=== PATIENT | female | born 1975 | race Caucasian/White ===

== ENCOUNTER 2019-03-25 20:20 | Emergency (ER) | payer MEDICAID, SELFPAY ==
--- NOTE | 2019-03-25 20:25 | NUR.NOTE ---
Nursing Note: pt states that she developed 10/10 pain at 1200 today left upper third molar
--- NOTE | 2019-03-25 20:27 | NUR.NOTE ---
Nursing Note: pt states that she developed 10/10 pain at 1200 today left upper third molar. pt has history of tooth infection in the same tooth was prescribed penicillin from our ER and told to follow up with dentist PT never followed up 3-4 months ago
[2019-03-25 20:28] VITALS: BP 115/65; PULSE 89; RESP 15; TEMP 36.8; O2SAT 96
[2019-03-25] MEDS: Penicillin V POTASSIUM 500 MG TAB PO (22:00)
--- NOTE | 2019-03-25 22:00 | ED.GENADUL_ITS ---
Discharge Plan Disposition Patient Disposition: HOME Condition: Improving Discharge Details Chief Complaint: DentalOral Clinical Impression: Infected dental caries Primary Care Provider: Kishore Montelongo ED Provider: Kade Chopra Home Meds and New Rx's Prescriptions: New penicillin V potassium 500 mg tablet 500 mg PO QID 7 Days Qty: 28 RF: 0 Continued sertraline 100 MG tablet 100 mg PO BID RF: 0 risperidone [Risperdal] 1 MG tablet 1 mg PO HS RF: 0 clonazepam 1 MG tablet 1 mg PO QID RF: 0 methylphenidate HCl [Ritalin] 20 MG tablet 20 mg PO TID RF: 0 peg 3350-electrolytes [Golytely] 4,000 ML recon soln 4,000 ml PO ONCE Qty: 4000 RF: 0 Discharge Instructions Instructions: Dental Abscess (ED) Additional Instructions: For pain control you may take 600 mg of ibuprofen along with 1000 mg of Tylenol every 6 hours as needed. Please take anabolic as prescribed and for the full course of medication. Return to the emergency department as needed for any new or significant worsening of symptoms otherwise follow-up with a dental provider. Referrals: Kishore Montelongo [Primary Care Provider] - (As needed for referral or reassessment) Discharge Data Discharge Date/Time-TO BE ENTERED AT DEPARTURE: 03/25/19 22:14 Medical Decision Making Left upper dental pain, since noon, severe. History of dental infection. Physical exam shows poor dentition. There is tenderness to tooth #16. Dental block performed with 1.5 mL's of 0.5%. Marcaine. Patient tolerated procedure w ell and had full resolution of pain. Patient placed on penicillin for concern of dental infection but no abscess is seen, no Craig's angina, no peritonsillar retropharyngeal abscess, patient is stable and afebrile. Return precautions discussed. Patient informed to follow-up with dental provider for definitive care of dental issue. After discussion of diagnosis and plan of care patient has no further needs, questions, or concerns and states clear understanding to return to the emergency department for any worsening symptoms. HPI General Mode of arrival: ambulatory . Date/Time Provider Initiated Documentation: 03/25/19 20:47 . Limitations to Documentation: no limitations . Information obtained by: patient . History of Present Illness 43 year old F presents to the emergency department with the chief complaint of Dental pain, described as severe, with intensity rated at 8. Quality is described as sharp, and is localized to the mouth. Patient started experiencing this hour(s) (8) and it has been constant. No relieving factors improve symptom(s), Patient notes no other symptoms.. Patient did receive the following treatments prior to arrival, other (Acetaminophen) Related Data Home Medications Medication Instructions Recorded Confirmed clonazepam 1 mg PO QID 06/04/15 03/25/19 risperidone [Risperdal] 1 mg PO HS 06/04/15 03/25/19 sertraline 100 mg PO BID 06/04/15 03/25/19 methylphenidate HCl [Ritalin] 20 mg PO TID 01/16/16 03/25/19 peg 3350-electrolytes [Golytely] 4,000 ml PO ONCE #4000 soln.recon 01/16/16 03/25/19 penicillin V potassium 500 mg PO QID 7 Days #28 tab 03/25/19 Previous Rx's Medication Instructions Recorded peg 3350-electrolytes [Golytely] 4,000 ml PO ONCE #4000 soln.recon 01/16/16 penicillin V potassium 500 mg PO QID 7 Days #28 tab 03/25/19 Allergies Allergy/AdvReac Type Severity Reaction Status Date / Time No Known Allergies Allergy Unverified 03/25/19 20:29 General Stated Complaint: DentalOral ROBLES: 4 Review of Systems Constitutional Denies chills and Denies fever(s) ENT Reports as per HPI, Denies change in voice, Reports dental pain, Denies dysphagia, Denies throat swelling and Denies tongue swelling Cardiovascular Denies chest pain and Denies dyspnea Respiratory Denies dyspnea, Denies stridor and Denies wheezing Gastrointestinal Denies abdominal pain, Denies dysphagia, Denies nausea and Denies vomiting Integumentary/Breasts Denies rash Allergic/Immunologic Denies throat swelling, Denies tongue swelling and Denies wheezing [facility] Medical History Anxiety Depression Family History Other Heart disease Social History Smoking/Tobacco Use Status: Current every day Alcohol Intake: never Drug use: Daily Substance use type: marijuana Do you feel safe at home: Yes Do you feel safe in your relationship?: Yes Exam Const General: cooperative Orientation: alert, awake and oriented x3 Limitations: mental status not altered [facility] Head: normal to inspection, normocephalic and atraumatic Ears: hearing grossly normal bilaterally, normal mastoids bilaterally and no periauricular adenopathy General nose exam: external nose normal Mouth: oropharynx normal, no drooling, no muffled voice, normal tongue and no trismus Teeth and gingiva: caries, gingiva abnormal diffusely erythematous (Surrounding tooth 16) and tender (Surrounding tooth 16), poor dentition and other (Tenderness to tooth 16) Throat: posterior oropharynx normal, tonsils normal and uvula midline Eyes General: appearance normal, both eyes and all related structures Pupils: PERRL Neck Neck: normal visual inspection, full ROM, no lymphadenopathy, no meningeal signs, trachea midline, supple, no anterior neck swelling and no midline deformity Resp Effort & Inspection: normal respiratory effort and able to speak in complete sentences Course Vital Signs Temperature 36.8 C 03/25/19 20:28 Pulse 89 03/25/19 20:28 Respiratory Rate 15 03/25/19 20:28 Blood Pressure 115/65 03/25/19 20:28 Pulse Oximetry 96 03/25/19 20:28 Temperature 36.8 C 03/25/19 20:28 Temperature Source Skin 03/25/19 20:28 Pulse 89 03/25/19 20:28 Respiratory Rate 15 03/25/19 20:28 Respiratory Effort 03/25/19 20:30 Blood Pressure 115/65 03/25/19 20:28 Blood Pressure Position Sitting 03/25/19 20:28 Pulse Oximetry 96 03/25/19 20:28 Oxygen Delivery Method Room Air 03/25/19 20:28 Oxygen Flow Rate 0 03/25/19 20:28 Pain Level 10 03/25/19 20:28
[2019-03-25] MEDS: Bupivacaine 0.5% Pres-Free 30 ML VIAL IJ (22:14)
[2019-03-25] MEDS: Penicillin V POTASSIUM 500 MG TAB 1500 MG PO (22:19)
[2019-03-25] MEDS: Ibuprofen 600 MG TAB PO (22:20)
[2019-03-25 22:22] VITALS: BP 115/65; PULSE 89; RESP 15; TEMP 36.8; O2SAT 96
== END 2019-03-25 22:14 | disposition home or self-care (01) ==
PROVIDERS: Emergency Provider Nurse Practitioner Family; PCP Family Medicine
DX: K04.7 Periapical abscess without sinus (principal); K02.9 Dental caries, unspecified
CPT/HCPCS: 64400; 99283

== ENCOUNTER 2021-04-01 17:16 | Outpatient (REF) | payer MEDICAID, SELFPAY ==
[2021-04-01 19:02] LABS: Bilirubin Small (Negative); Blood Moderate (Negative); Clarity Sl Cloudy (Clear); Glucose Negative (Negative); Ketones Trace mg/dL (Negative); Leukocyte Esterase Small (Negative); Nitrite Positive (Negative); Specific Gravity 1.025 (1.005-1.025)
[2021-04-01 19:10] LABS: Bacteria Many HPF (Negative); C & S Indicated? C&S Done As Ordered; Casts Negative LPF (Negative); Crystals Negative HPF (Negative); Epithelial Cells Few HPF (Negative); Mucus Trace (Negative)
== END 2021-04-01 17:17 | disposition home or self-care (01) ==
LOC: LBN 17:16
PROVIDERS: PCP Family Medicine; Visit Provider Family Medicine
DX: R33.9 Retention of urine, unspecified (principal); G60.0 Hereditary motor and sensory neuropathy
CPT/HCPCS: 87077; 81003; 81015; 87086; 87186

== ENCOUNTER 2021-10-30 18:49 | Outpatient (REF) | payer MEDICAID, SELFPAY ==
[2021-10-30 17:54] LABS: HCT 39.6 % (36.0-46.0); MCH 31.6 pg (27.0-33.0); MCHC 32.8 % (32.0-36.0); MCV 96.4 fL (80-95); MPV 10.4 fL (8.0-11.0); Platelet Count 179 10^3/uL (130-400); RBC 4.11 10^6/uL (3.93-5.22); RDW 13.2 % (11.7-14.6); RDW-SD 47.4 fL; WBC 5.88 10^3/uL (4.4-10.8)
[2021-10-30 18:20] LABS: ALT 14 U/L (14-59); AST 16 U/L (15-37); Albumin 3.6 g/dL (3.4-5.0); Alkaline Phosphatase 121 U/L (46-116); Anion Gap 7.5 mmol/L (3-11); BUN 12 mg/dL (7-18); Bilirubin, Total 0.9 mg/dL (0.2-1.0); CO2 27.5 mmol/L (21.0-32.0); CREATININE 0.5 mg/dL (0.55-1.02); Calcium 8.7 mg/dL (8.5-10.1); Calculated LDL 116 mg/dL (<100); Chloride 103 mmol/L (98-107); Cholesterol 184 mg/dL (<200); Glucose 87 mg/dL (74-106); HDL Cholesterol 51 mg/dL (40-60); Potassium 3.9 mmol/L (3.5-5.1); Sodium 138 mmol/L (136-145); Total Protein 6.9 g/dL (6.4-8.2); Triglyceride 86 mg/dL (<150)
== END 2021-10-30 18:50 | disposition home or self-care (01) ==
LOC: LBN 18:49
PROVIDERS: PCP Family Medicine; Visit Provider Registered Nurse
DX: E87.6 Hypokalemia (principal); F33.9 Major depressive disorder, recurrent, unspecified; G61.82 Multifocal motor neuropathy
CPT/HCPCS: 80053; 80061; 85027

== ENCOUNTER 2021-11-06 21:22 | Outpatient (REF) | payer MEDICAID, SELFPAY ==
[2021-11-06 21:46] LABS: Alkaline Phosphatase 140 U/L (46-116); Anion Gap 9.6 mmol/L (3-11); BUN 14 mg/dL (7-18); CO2 25.4 mmol/L (21.0-32.0); CREATININE 0.6 mg/dL (0.55-1.02); Calcium 9.1 mg/dL (8.5-10.1); Chloride 105 mmol/L (98-107); GGT 30 U/L (5-55); Glucose 108 mg/dL (74-106); Sodium 140 mmol/L (136-145)
== END 2021-11-06 21:23 | disposition home or self-care (01) ==
LOC: LBN 21:22
PROVIDERS: PCP Family Medicine; Visit Provider Registered Nurse
DX: E87.6 Hypokalemia (principal); G40.909 Epilepsy, unspecified, not intractable, without status epilepticus; G61.82 Multifocal motor neuropathy
CPT/HCPCS: 80048; 82977; 84075

== ENCOUNTER 2021-11-29 21:00 | Outpatient (REF) | payer MEDICAID, SELFPAY ==
[2021-11-29 22:42] LABS: PHOSPHORUS 3.4 mg/dL (2.6-4.7); Potassium 3.2 mmol/L (3.5-5.1); TSH (W/Ref FT4) 1.63 uIU/mL (0.36-3.74)
[2021-12-02 06:35] LABS: Vitamin D 25 Total < 5 ng/mL (30-100)
[2021-12-02 11:35] LABS: Parathyroid Hormone,Intact 32 pg/mL (19-88)
== END 2021-11-29 21:01 | disposition home or self-care (01) ==
LOC: NCHCN 21:00
PROVIDERS: PCP Family Medicine; Visit Provider Registered Nurse
DX: M62.81 Muscle weakness (generalized) (principal); E55.9 Vitamin D deficiency, unspecified; E87.6 Hypokalemia; G40.909 Epilepsy, unspecified, not intractable, without status epilepticus; G61.82 Multifocal motor neuropathy
CPT/HCPCS: 82306; 83970; 84100; 84132; 84443

== ENCOUNTER 2022-04-05 07:21 | Emergency (ER) | payer MEDICAID, SELFPAY ==
[2022-04-05 07:30] VITALS: BP 133/79; PULSE 90; RESP 18; TEMP 36.6; O2SAT 99
[2022-04-05] MEDS: Normal Saline 1,000 ML 1000 ML IV (08:43)
[2022-04-05 08:45] LABS: Abs Immature Grans 0.03 10^3/uL (0.0-0.06); Absolute Basophil Count 0.03 10^3/uL (0.0-0.2); Absolute Eosinophil Count 0.05 10^3/uL (0.0-0.7); Absolute Lymphocyte Count 1.86 10^3/uL (1.2-3.4); Absolute Monocyte Count 0.49 10^3/uL (0.1-0.8); Absolute Neutrophil Count 6.18 10^3/uL (1.2-6.7); Basophils % 0.3; Eosinophils % 0.6; Immature Grans % 0.3; Lymphocytes % 21.5; MCH 34.6 pg (27.0-33.0); MCHC 34.9 % (32.0-36.0); MCV 99 fL (80-95); Monocytes % 5.7; Neutrophils % 71.6; Platelet Count 206 10^3/uL (130-400); RBC 4.33 10^6/uL (3.93-5.22); RDW 12.1 % (11.7-14.6); RDW-SD 44.5 fL; WBC 8.64 10^3/uL (4.4-10.8)
[2022-04-05 09:01] LABS: ALT 10 U/L (14-59); AST 11 U/L (15-37); Albumin 3.8 g/dL (3.4-5.0); Alkaline Phosphatase 128 U/L (46-116); Anion Gap 10.7 mmol/L (3-11); BUN 5 mg/dL (7-18); Bilirubin, Total 0.8 mg/dL (0.2-1.0); CO2 26.3 mmol/L (21.0-32.0); CREATININE 0.6 mg/dL (0.55-1.02); Calcium 9.1 mg/dL (8.5-10.1); Chloride 103 mmol/L (98-107); Glucose 122 mg/dL (74-106); Lipase 30 U/L (73-393); Magnesium 2.1 mg/dL (1.8-2.4); Potassium 3.5 mmol/L (3.5-5.1); Sodium 140 mmol/L (136-145); Total Protein 7.9 g/dL (6.4-8.2)
[2022-04-05 09:35] VITALS: BP 112/62; PULSE 76; RESP 18; TEMP 37.2; O2SAT 100
--- NOTE | 2022-04-05 09:44 | NUR.NOTE ---
pt states that she is unable to stand and pivot due to the pain in her feet which is her base line. she reports that her boy friend lifts her on and off of her wheel chair Nursing Note:
[2022-04-05 09:51] LABS: Bilirubin Negative (Negative); Blood Negative (Negative); Clarity Clear (Clear); Glucose Negative (Negative); Ketones 15 mg/dL (Negative); Leukocyte Esterase Negative (Negative); Nitrite Negative (Negative); Urobilinogen 0.2 EU/dL (Up TO 0.2); pH 5.5 (5-8)
--- NOTE | 2022-04-05 10:04 | ED.GENADUL_ITS ---
Discharge Plan Disposition Patient Disposition: HOME Condition: Improving Discharge Details Clinical Impression: Diarrhea due to drug Primary Care Provider: Kishore Montelongo ED Provider: Kade Chopra Home Meds and New Rx's Prescriptions: No Action sertraline 100 MG tablet 100 mg PO BID risperidone [Risperdal] 1 MG tablet 1 mg PO HS clonazepam 1 MG tablet 1 mg PO QID methylphenidate HCl [Ritalin] 20 MG tablet 20 mg PO TID peg 3350-electrolytes [Golytely] 4,000 ML recon soln 4,000 ml PO ONCE Qty: 4000 0RF gabapentin 300 mg capsule 1 cap PO DAILY Discharge Instructions Instructions: Acute Diarrhea (ED) Additional Instructions: At this time your labs were unremarkable. While we were unable to obtain a stool specimen you have been given order forms for outpatient labs to complete your work-up. If you have any new or significant worsening of symptoms return immediately to the emergency department for reassessment. Please worsening symptoms could include blood or mucus in your stools, significant foul-smelling persistent diarrhea, fever chills, or any other concerns you may have. It is recommended that you take an [id number] Probiotic with 1 tablespoon of Metamucil in at least 16 ounces of water twice a day while having diarrhea symptoms. Once stools become more formed you may do this once a day for an additional 2-3 weeks. Feel free to follow-up with your primary care provider also as needed for reassessment. Referrals: Kishore Montelongo [Primary Care Provider] - (As needed for reassessment) Discharge Data Discharge Date/Time-TO BE ENTERED AT DEPARTURE: 04/06/22 00:58 Medical Decision Making Patient presenting to the emergency department for chief complaint of diarrhea and lower abdominal cramping for the past couple days. She is concerned due to her normally taking a potassium supplement which she has been unable to take it due to the nausea and lack of appetite. Patient denies any fever chills, urinary or vaginal, respiratory or other symptoms. Physical exam is benign with soft nontender abdomen and normal active bowel sounds. Further discussion patient does state that around time symptoms started she started taking a leftover antibiotic that she had for dental pain due to an increase of dental pain. Patient has overall poor dentition but she states that the dental pain is resolved and she stopped the antibiotic a couple days ago. We will plan on checking labs, stool specimen if able and urinalysis. Will give IV fluids pending results Review of CBC is overall unremarkable with no significant loose leukocytosis, electrolytes are within normal range, AST ALT are low with slightly elevated alk phos. Patient states that she is following up with her primary care provider already on abnormal LFTs. Lipase is normal at 30. Urinalysis shows slight urine ketones but otherwise no signs of infection. Reassessed patient and she did state that she was improving. Patient was unable to provide stool specimen. Given that patient has no blood or mucus, no fever chills, denies foul-smelling stool. I do feel this is more of a side effect of the antibiotic usage but I am unsure if this is C. difficile at this time. Patient has no peritoneal findings, no tenderness, no surgical abdominal findings. I do not feel that imaging is required. We will send patient home with outpatient orders for stool specimens. Pending these results recommended that patient takes probiotics along with Metamucil to see if this helps with her symptoms, staying well- hydrated, and returning for any new or worsening symptoms that were further discussed. Patient is agreeable to this plan. After discussion of diagnosis and plan of care patient has no further needs, questions, or concerns and states clear understanding to return to the emergency department for any worsening symptoms. This documentation was generated using [employer] dictation system, please disregard any oddities of phrase or misspellings. HPI General Mode of arrival: wheelchair . Date/Time Provider Initiated Documentation: 04/05/22 08:01 . Limitations to Documentation: no limitations . Information obtained by: patient and RN notes reviewed . History of Present Illness 46 year old F presents to the emergency department with the chief compl aint of Diarrhea diarrhea with abdominal cramping, described as moderate, with intensity rated at 7. Quality is described as other (Cramping), and is localized to the abdomen. Patient reports no radiation. Patient started experiencing this week(s) and it has been constant. No relieving factors improve symptom(s), No exacerbating factors reported . Patient did receive the following treatments prior to arrival, none Related Data Home Medications Medication Instructions Recorded Confirmed clonazepam 1 mg tablet 1 mg PO QID 06/04/15 04/05/22 risperidone 1 mg tablet (Risperdal) 1 mg PO HS 06/04/15 03/25/19 sertraline 100 mg tablet 100 mg PO BID 06/04/15 03/25/19 methylphenidate HCl 20 mg tablet 20 mg PO TID 01/16/16 04/05/22 (Ritalin) peg 3350-electrolytes 236 4,000 ml PO ONCE ##4,000 01/16/16 03/25/19 gram-22.74 gram-6.74 gram-5.86 gram solution (Golytely) gabapentin 300 mg capsule 1 cap PO DAILY 04/05/22 04/05/22 Previous Rx's Medication Instructions Recorded peg 3350-electrolytes 236 4,000 ml PO ONCE ##4,000 01/16/16 gram-22.74 gram-6.74 gram-5.86 gram solution (Golytely) Allergies Allergy/AdvReac Type Severity Reaction Status Date / Time No Known Allergies Allergy Unverified 03/25/19 20:29 General Stated Complaint: Abd Prob ROBLES: 3 Review of Systems Constitutional Constitutional: Denies chills, Denies fever(s), Reports malaise and Reports poor appetite ENT Ears, Nose, Mouth, and Throat: Reports dental pain, Denies nasal congestion and Denies sore throat Cardiovascular Cardiovascular: Denies chest pain and Denies dyspnea Respiratory Respiratory: Denies cough and Denies dyspnea Gastrointestinal Gastrointestinal: Reports as per HPI, Reports abdominal pain, Denies melena, Denies hematochezia, Denies constipation, Reports cramping, Reports diarrhea, Reports nausea, Denies vomiting and Denies hematemesis Genitourinary Genitourinary: Denies hematuria, Denies urinary incontinence, Denies urinary hesitancy and Denies urinary urgency Integumentary/Breasts Skin/Breast: Denies rash PFSH All Active Problems (Updated 04/05/22 @ 10:16 by Kade Chopra NP) Soft tissue abscess (Acute) Diarrhea due to drug (Acute) Medical History (Updated 04/05/22 @ 10:16 by Kade Chopra NP) Anxiety Depression Family History Other Heart disease Social History Smoking/Tobacco Use Status: Current every day Tobacco Type: cigarettes Smoking risk assessment performed?: Yes Alcohol Intake: never Drug use: Daily Substance use type: marijuana Do you feel safe at home: Yes Do you feel safe in your relationship?: Yes Exam Const General: cooperative Orientation: alert, awake and oriented x3 Resp Effort & Inspection: normal respiratory effort and able to speak in complete sentences Auscultation: clear to auscultation bilaterally Cardio Rate: regular rate Rhythm: regular rhythm Heart Sounds: S1 normal and S2 normal GI Palpation: soft, no hepatosplenomegaly, not firm, no guarding, no masses, no pulsatile masses, not rigid, no splenomegaly and nontender Auscultation: normal bowel sounds Back/Spine/Pelvis Back: no CVA tenderness Neuro General: patient alert, patient awake, patient oriented x3, gait normal and moves all extremities Course Vital Signs Vital signs: Vital Signs Temperature 36.6 C 04/05/22 07:30 Pulse 90 04/05/22 07:30 Respiratory Rate 18 04/05/22 07:30 Blood Pressure 133/79 04/05/22 07:30 Pulse Oximetry 99 04/05/22 07:30 Temperature 37.2 C 04/05/22 09:35 Temperature Source Temporal Artery Scan 04/05/22 09:35 Pulse 76 04/05/22 09:35 Respiratory Rate 18 04/05/22 09:35 Respiratory Effort Non-Labored 04/05/22 07:33 Blood Pressure 112/62 04/05/22 09:35 Pulse Oximetry 100 04/05/22 09:35 Oxygen Delivery Method Room Air 04/05/22 09:35 Oxygen Flow Rate 0 04/05/22 09:35 Pain Level 0 04/05/22 09:35 Lab/Test Results Lab/Test Results: Laboratory Tests Range/Units 04/05/22 04/05/22 04/05/22 08:35 08:35 09:40 WBC (4.4-10.8) 10^3/uL 8.64 RBC (3.93-5.22) 10^6/uL 4.33 Hgb (11.2-15.7) g/dL 15.0 Hct (36.0-46.0) % 43.0 MCV (80-95) fL 99 H MCH (27.0-33.0) pg 34.6 H MCHC (32.0-36.0) % 34.9 RDW (11.7-14.6) % 12.1 Plt Count (130-400) 10^3/uL 206 MPV (8.0-11.0) fL 10.0 Immature Gran % 0.3 Neutrophils % 71.6 Lymphocytes % 21.5 Monocytes % 5.7 Eosinophils % 0.6 Basophils % 0.3 Nucleated RBC % (0.0-0.3) % 0.0 Absolute Neutrophils (1.2-6.7) 10^3/uL 6.18 Absolute Lymphocytes (1.2-3.4) 10^3/uL 1.86 Absolute Monocytes (0.1-0.8) 10^3/uL 0.49 Absolute Eosinophils (0.0-0.7) 10^3/uL 0.05 Absolute Basophils (0.0-0.2) 10^3/uL 0.03 Sodium (136-145) mmol/L 140 Potassium (3.5-5.1) mmol/L 3.5 Chloride (98-107) mmol/L 103 Carbon Dioxide (21.0-32.0) mmol/L 26.3 Anion Gap (3-11) mmol/L 10.7 BUN (7-18) mg/dL 5 L Creatinine (0.55-1.02) mg/dL 0.6 Estimated GFR/1.73 m2 (mL/min/1.73m2) >= 60.00 Glucose (74-106) mg/dL 122 H Calcium (8.5-10.1) mg/dL 9.1 Magnesium (1.8-2.4) mg/dL 2.1 Total Bilirubin (0.2-1.0) mg/dL 0.8 AST (15-37) U/L 11 L ALT (14-59) U/L 10 L Alkaline Phosphatase (46-116) U/L 128 H Total Protein (6.4-8.2) g/dL 7.9 Albumin (3.4-5.0) g/dL 3.8 Lipase (73-393) U/L 30 Urine Color (Yellow) Yellow Urine Clarity (Clear) Clear Urine pH (5-8) 5.5 Ur Specific [place] (1.005-1.025) 1.010 Urine Protein (Negative) mg/dL Negative Urine Ketones (Negative) mg/dL 15 H Urine Blood (Negative) Negative Urine Nitrite (Negative) Negative Urine Bilirubin (Negative) Negative Urine Urobilinogen (Up TO 0.2) EU/dL 0.2 Ur Leukocyte Esterase (Negative) Negative Urine Glucose (Negative) mg/dL Negative POC- Test(urine) Negative
[2022-04-05] MEDS: Ondansetron O.D.T. 4 MG TABEF, 3 TABS/BTL PO (10:44)
== END 2022-04-06 00:58 | disposition home or self-care (01) ==
PROVIDERS: Emergency Provider Nurse Practitioner Family; PCP Family Medicine
DX: K52.1 Toxic gastroenteritis and colitis (principal); R82.4 Acetonuria; R79.89 Other specified abnormal findings of blood chemistry; F17.210 Nicotine dependence, cigarettes, uncomplicated
CPT/HCPCS: 80053; 81025; 83690; 96360; 99284; 81003; 83735; 85025

== ENCOUNTER 2022-04-21 05:13 | Emergency (ER) | payer MEDICAID, SELFPAY ==
[2022-04-21 05:21] VITALS: BP 114/68; PULSE 89; RESP 18; TEMP 36.2; O2SAT 98
--- NOTE | 2022-04-21 05:45 | DI.CT_ITS ---
Exam(s) CT ABDOMEN PELVIS W EXAM: CT ABDOMEN PELVIS W CLINICAL HISTORY: diarrhea, abdominal pain. TECHNIQUE: Imaging Protocol: Axial computed tomography images with coronal and sagittal reformatted images were created and reviewed CONTRAST MATERIAL: Intravenous: Omnipaque 350 Contrast volume:100 ml Oral: no COMPARISON: No exams were available for comparison FINDINGS: ABDOMEN: Lung Bases: Normal where visualized. Liver: Normal density. Small cyst posterior right lobe. No suspicious measurable mass. Gallbladder and biliary tract: Status post cholecystectomy. The common bile duct is dilated to 17 mi llimeters. Tapers normally in the head of the pancreas. There is mild intrahepatic biliary dilatati on is well as mild dilatation of the pancreatic duct. Findings could be postsurgical. No radiodense calculus . Pancreas: Normal density, no abnormal calcifications or inflammatory process. Spleen: Normal. Kidneys: Normal size, contour and axis. No radiodense stones or obstructive uropathy. No masses seen. Adrenal glands: No masses seen. Abdominal Aorta: Abdominal portion non-dilated. PELVIS: Bladder: No gross wall thickening. No calculi.No focal mass. Bowel: The colon is nearly free of stool. There is question of wall thickening versus under distenti on. Findings could represent diffuse colitis. Small bowel is under and stomach are unremarkable. Peritoneal cavity: No ascites, collection or mesenteric inflammatory response. Bones: Within normal limits for age. Reproductive organs: Within normal limits. Dominant follicle left ovary. Lymph nodes: Unremarkable. Impression: Question of diffuse colitis versus artifact of underdistention. Dilated bile ducts could be postsurgical. RADIATION DOSE DELIVERED: 632.59mGy.cm Total DLP DATA REPOSITORY: All CT scans at this facility are submitted to the National Radiology Data Registry (NRDR) Dose Index Registry (DIR) with the [employer] (ACR). RADIATION OPTIMIZATION: All CT scans at this facility use at least one of these dose optimization te chniques: automated exposure control; mA and/or kV adjustment per patient size (includes targeted exa ms where dose is matched to clinical indication); or iterative reconstruction.
[2022-04-21 06:06] LABS: Abs Immature Grans 0.03 10^3/uL (0.0-0.06); Absolute Basophil Count 0.03 10^3/uL (0.0-0.2); Absolute Eosinophil Count 0.03 10^3/uL (0.0-0.7); Absolute Lymphocyte Count 1.63 10^3/uL (1.2-3.4); Absolute Monocyte Count 0.47 10^3/uL (0.1-0.8); Absolute Neutrophil Count 5.83 10^3/uL (1.2-6.7); Basophils % 0.4; Eosinophils % 0.4; HCT 45.9 % (36.0-46.0); HGB 16.1 g/dL (11.2-15.7); Immature Grans % 0.4; Lymphocytes % 20.3; MCH 34.3 pg (27.0-33.0); MCHC 35.1 % (32.0-36.0); MCV 98 fL (80-95); MPV 10.3 fL (8.0-11.0); Monocytes % 5.9; Neutrophils % 72.6; Platelet Count 195 10^3/uL (130-400); RBC 4.69 10^6/uL (3.93-5.22); RDW 11.9 % (11.7-14.6); RDW-SD 42.9 fL; WBC 8.02 10^3/uL (4.4-10.8)
[2022-04-21] MEDS: Omnipaque 350 MG/ML 100 ML BTL IJ (06:11)
[2022-04-21 06:22] LABS: ALT 11 U/L (14-59); AST 12 U/L (15-37); Albumin 3.9 g/dL (3.4-5.0); Alkaline Phosphatase 111 U/L (46-116); Anion Gap 10.9 mmol/L (3-11); BUN 5 mg/dL (7-18); Bilirubin, Total 1.3 mg/dL (0.2-1.0); CO2 25.1 mmol/L (21.0-32.0); CREATININE 0.7 mg/dL (0.55-1.02); Calcium 8.9 mg/dL (8.5-10.1); Chloride 100 mmol/L (98-107); Estimated GFR 107.28 (mL/min/1.73m2); Glucose 122 mg/dL (74-106); Potassium 3.4 mmol/L (3.5-5.1); Sodium 136 mmol/L (136-145); Total Protein 7.5 g/dL (6.4-8.2)
[2022-04-21] MEDS: Normal Saline 1,000 ML 1000 ML IV (06:22)
--- NOTE | 2022-04-21 06:23 | DI.VRAD_ITS ---
PROCEDURE INFORMATION: Exam: CT Abdomen And Pelvis With Contrast Exam date and time: 04/21/2022 6:09 AM Age: 46 years old Clinical indication: Other: Diarrhea, abdominal pain; Generalized TECHNIQUE: Imaging protocol: Computed tomography of the abdomen and pelvis with contrast. Radiation optimization: All CT scans at this facility use at least one of these dose optimization techniques: automated exposure control; mA and/or kV adjustment per patient size (includes targeted exams where dose is matched to clinical indication); or iterative reconstruction. Contrast material: OMNI 350; Contrast volume: 100 ml; Contrast route: INTRAVENOUS (IV); COMPARISON: CR ABD FLAT UPRIGHT PA CHEST 01/16/2016 6:51 PM FINDINGS: Lungs: Lung bases clear. Liver: Small indeterminate hypoattenuating hepatic lesion, incompletely characterized but most likely a small cyst or hemangioma. Possible fatty infiltration of the liver, difficult to confidently diagnose by CT imaging after administration of intravenous contrast. Gallbladder and bile ducts: Gallbladder not identified. Prior cholecystectomy? Correlation with surgical history recommended. Intrahepatic and extrahepatic biliary prominence, suspected to represent a postsurgical finding in the setting of prior cholecystectomy although correlation with surgical history is recommended. Pancreas: Normal appearing pancreas. Spleen: Splenomegaly, 15 cm craniocaudal dimension. Adrenal glands: Normal appearing adrenal glands. Kidneys and ureters: Normal appearing kidneys. No hydronephrosis. Stomach and bowel: No oral contrast. Stomach partially decompressed. No small bowel dilatation to suggest obstruction. Colon completely evacuated of formed fecal material. Mural thickening through the collapsed segments of the colon. Artifact of under distention? Extensive colitis/proctocolitis? Clinical correlation recommended. Mild prominence of the perirectal veins suggesting probable hemorrhoids. Appendix: Normal appendix, best demonstrated by the coronal series. Intraperitoneal space: No gross ascites or free air. Vasculature: Normal caliber abdominal aorta. Lymph nodes: No pathologically enlarged mesenteric, retroperitoneal, or pelvic sidewall lymph nodes. Urinary bladder: Urinary bladder partially collapsed but grossly unremarkable, as seen. Reproductive: Anteverted uterus, normal in size. Normal-sized ovaries. 2.7 cm x 1.8 cm peripherally enhancing left ovarian corpus luteum. Bones/joints: No acute fracture seen among the bones of the abdomen or pelvis. Small vestigial rib on the left at L1. Six lumbar type vertebral bodies with a transitional L6 vertebral body which is hemisacralized on the left. Please note that vertebral body numbering is not definitive in the absence of complete spinal visualization. Soft tissues: Tiny fat-containing ventral hernia at the umbilicus, doubtful clinical significance. IMPRESSION: 1. Colon completely evacuated of formed fecal material in keeping with the provided history of diarrhea. Apparent mural thickening through the collapsed segments of the colon. Artifact from underdistention or extensive acute colitis/proctocolitis could have this appearance. Clinical correlation is recommended. 2. 2.7 cm x 1.8 cm peripherally enhancing left ovarian corpus luteum. No gross free pelvic fluid. 3. Splenomegaly, 15 cm. 4. Additional findings, as above. Dictated and Authenticated by: Phillip Clark MD. Ordering:JOSE Leblanc MD
--- NOTE | 2022-04-21 06:26 | W.ED.GENAD ---
Discharge Plan Disposition Patient Disposition: HOME Condition: Good Discharge Details Clinical Impression: Diarrhea, Colitis Primary Care Provider: Kishore Montelongo ED Provider: Benji House Home Meds and New Rx's Prescriptions: New levofloxacin 750 mg tablet 750 mg PO DAILY Qty: 7 0RF No Action clonazepam 1 MG tablet 1 mg PO QID methylphenidate HCl [Ritalin] 20 MG tablet 20 mg PO TID gabapentin 300 mg capsule 1 cap PO DAILY Discharge Instructions Instructions: Colitis (ED) Additional Instructions: At this time your laboratory work-up is stable, however it is still important that we get stool cultures. Please bring a sample back as soon as possible. Please take the antibiotic as directed to help with the suspected colitis. Please continue to take the probiotic. Drink plenty of fluids and stay well-hydrated. If you notice any worsening of your symptoms, or any new symptoms such as vomiting, diarrhea, fever, chills, shortness of breath, chest pain, numbness, weakness, or fainting , please return immediately to the emergency department for reevaluation. Please follow up with your primary care provider as soon as possible for reassessment and reevaluation. As always, it was a pleasure participating in your medical care today. Referrals: Kishore Montelongo [Primary Care Provider] - Medical Decision Making This is a 46-year-old female with a past medical history of peripheral neuropathy leading to chronic lower extremity weakness who presents today for evaluation of abdominal pain and diarrhea. The patient states that for the last month she has been having persistent abdominal cramping, bloating, nausea but no vomiting, and loose stool. She denies any recent antibiotic use. She denies any blood in her stool. She denies any fever or chills. She was here a few weeks ago, and her laboratory work-up was relatively stable at that time, unfortunately she was not able to procure a stool sample then. Patient admits to persistence of her symptoms in spite of probiotic use. She denies any other complaints. Past surgical history is positive for cholecystectomy. Exam demonstrates well-appearing female, slightly dry mucous membranes. Mild achiness on palpation of. But no evidence of a clinically acute surgical abdomen. No pain to McBurney's point. Uncertain as to what is causing the patient's generalized abdominal achiness, for the diarrhea. We will order stool studies, get a CT scan of the abdomen, gently rehydrate, monitor closely and reassess 6:[address] scan result have returned and shows evidence of diarrhea which was already known, but also potential mural thickening of the colonic segments of the colon which could be artifactual versus colitis, given her history of prolonged diarrhea and generalized abdominal achiness and pain I am concerned that this may in fact be evidence of colitis. Infectious diarrhea is a potential. She did not get stool cultures today, but we will send for lab slip for outpatient cultures. We will give a dose of Levaquin 750 here, and a prescription for home. Otherwise the patient shows no signs of toxic megacolon, sepsis, or other emergent etiology requiring admission. Discussed red flags for which to return. I have extensively reviewed the treatment plan and discharge instructions with the patient and their family. I have addressed all patient concerns at this time. The patient and family was made aware of what symptoms to monitor for that would warrant a return to the emergency department. Discussed the plan with the patient and family, they demonstrate verbal understanding and agreement with our assessment and plan at this time. The documentation in this chart was dictated using [email or web address] dictation software. Please excuse any dictation errors. FINDINGS: Lungs: Lung bases clear. Liver: Small indeterminate hypoattenuating hepatic lesion, incompletely characterized but most likely a small cyst or hemangioma. Possible fatty infiltration of the liver, difficult to confidently diagnose by CT imaging after administration of intravenous contrast. Gallbladder and bile ducts: Gallbladder not identified. Prior cholecystectomy? Correlation with surgical history recommended. Intrahepatic and extrahepatic biliary prominence, suspected to represent a postsurgical finding in the setting of prior cholecystectomy although correlation with surgical history is recommended. Pancreas: Normal appearing pancreas. Spleen: Splenomegaly, 15 cm craniocaudal dimension. Adrenal glands: Normal appearing adrenal glands. Kidneys and ureters: Normal appearing kidneys. No hydronephrosis. Stomach and bowel: No oral contrast. Stomach partially decompressed. No small bowel dilatation to suggest obstruction. Colon completely evacuated of formed fecal material. Mural thickening through the collapsed segments of the colon. Artifact of under distention? Extensive colitis/proctocolitis? Clinical correlation recommended. Mild prominence of the perirectal veins suggesting probable hemorrhoids. Appendix: Normal appendix, best demonstrated by the coronal series. Intraperitoneal space: No gross ascites or free air. Vasculature: Normal caliber abdominal aorta. Lymph nodes: No pathologically enlarged mesenteric, retroperitoneal, or pelvic sidewall lymph nodes. Urinary bladder: Urinary bladder partially collapsed but grossly unremarkable, as seen. Reproductive: Anteverted uterus, normal in size. Normal-sized ovaries. 2.7 cm x 1.8 cm peripherally enhancing left ovarian corpus luteum. Bones/joints: No acute fracture seen among the bones of the abdomen or pelvis. Small vestigial rib on the left at L1. Six lumbar type vertebral bodies with a transitional L6 vertebral body which is hemisacralized on the left. Please note that vertebral body numbering is not definitive in the absence of complete spinal visualization. Soft tissues: Tiny fat-containing ventral hernia at the umbilicus, doubtful clinical significance. IMPRESSION: 1. Colon completely evacuated of formed fecal material in keeping with the provided history of diarrhea. Apparent mural thickening through the collapsed segments of the colon. Artifact from underdistention or extensive acute colitis/proctocolitis could have this appearance. Clinical correlation is recommended. 2. 2.7 cm x 1.8 cm peripherally enhancing left ovarian corpus luteum. No gross free pelvic fluid. 3. Splenomegaly, 15 cm. 4. Additional findings, as above. Thank you for allowing us to participate in the care of your patient. Dictated and Authenticated by: Phillip Clark MD 04/21/2022 6:22 AM Eastern Time ([place] & [place]) HPI General Date/Time Provider Initiated Documentation: 04/21/22 05:20. HPI Narrative: This is a 46-year-old female with a past medical history of peripheral neuropathy leading to chronic lower extremity weakness who presents today for evaluation of abdominal pain and diarrhea. The patient states that for the last month she has been having persistent abdominal cramping, bloating, nausea but no vomiting, and loose stool. She denies any recent antibiotic use. She denies any blood in her stool. She denies any fever or chills. She was here a few weeks ago, and her laboratory work-up was relatively stable at that time, unfortunately she was not able to procure a stool sample then. Patient admits to persistence of her symptoms in spite of probiotic use. She denies any other complaints. Past surgical history is positive for cholecystectomy. Related Data Home Medications Medication Instructions Recorded Confirmed clonazepam 1 mg tablet 1 mg PO QID 06/04/15 04/21/22 methylphenidate HCl 20 mg tablet 20 mg PO TID 01/16/16 04/21/22 (Ritalin) gabapentin 300 mg capsule 1 cap PO DAILY 04/05/22 04/21/22 levofloxacin 750 mg tablet 750 mg PO DAILY #7 tabs 04/21/22 Previous Rx's Medication Instructions Recorded levofloxacin 750 mg tablet 750 mg PO DAILY #7 tabs 04/21/22 Allergies Allergy/AdvReac Type Severity Reaction Status Date / Time No Known Allergies Allergy Unverified 03/25/19 20:29 General Stated Complaint: Abd Prob ROBLES: 3 Review of Systems All systems reviewed & are unremarkable except as noted in HPI and below PFSH All Active Problems (Updated 04/21/22 @ 06:48 by Benji House DO) Soft tissue abscess (Acute) Diarrhea due to drug (Acute) Diarrhea (Acute) Colitis (Acute) Medical History (Updated 04/21/22 @ 06:48 by Benji House DO) Anxiety Depression Family History Other Heart disease Social History Smoking/Tobacco Use Status: Current every day Tobacco Type: cigarettes Smoking risk assessment performed?: Yes Alcohol Intake: never Drug use: Daily Substance use type: marijuana Do you feel safe at home: Yes Do you feel safe in your relationship?: Yes Exam Narrative Exam Narrative: 1.Const: Well-nourished, Well-developed, appearing stated age 2.Eyes: PERRL, no conjunctival injection, and symmetrical lids. 3.ENT: Atraumatic external nose and ears. dry MM. Neck: Symmetric, trachea midline, No thyromegaly. 4.CVS: +S1/S2, No murmurs or gallops. Peripheral pulses 2+ and equal in all extremities. Brisk capillary refill in all extremities. 5.RESP: Unlabored respiratory effort. Clear to auscultation bilaterally. No wheezes rales or rhonchi 6.GI: Soft, Nontender/Nondistended, No hepatosplenomegaly. No guarding or rebound. 7.MSK: Normocephalic/Atraumatic, Extremities w/o deformity or ttp No cyanosis or clubbing, Normal movement of all extremities 8.Skin: Warm, Dry. No rashes or lesions. 9.Neuro: anesthesiologist/physician II-XII grossly intact. Sensation grossly intact, no focal neurologic deficits. 10.Psych: (AAO) x3. Appropriate mood and affect Course Vital Signs Vital signs: Vital Signs Temperature 36.2 C L 04/21/22 05:21 Pulse 89 04/21/22 05:21 Respiratory Rate 18 04/21/22 05:21 Blood Pressure 114/68 04/21/22 05:21 Pulse Oximetry 98 04/21/22 05:21 Temperature 36.2 C L 04/21/22 05:21 Temperature Source Skin 04/21/22 05:21 Pulse 89 04/21/22 05:21 Respiratory Rate 18 04/21/22 05:21 Respiratory Effort Non-Labored 04/21/22 05:27 Blood Pressure 114/68 04/21/22 05:21 Pulse Oximetry 98 04/21/22 05:21 Pain Level 5 04/21/22 05:21 Lab/Test Results Lab/Test Results: Laboratory Tests Range/Units 04/21/22 04/21/22 04/21/22 05:35 06:00 06:00 WBC (4.4-10.8) 10^3/uL 8.02 RBC (3.93-5.22) 10^6/uL 4.69 Hgb (11.2-15.7) g/dL 16.1 H Hct (36.0-46.0) % 45.9 MCV (80-95) fL 98 H MCH (27.0-33.0) pg 34.3 H MCHC (32.0-36.0) % 35.1 RDW (11.7-14.6) % 11.9 Plt Count (130-400) 10^3/uL 195 MPV (8.0-11.0) fL 10.3 Immature Gran % 0.4 Neutrophils % 72.6 Lymphocytes % 20.3 Monocytes % 5.9 Eosinophils % 0.4 Basophils % 0.4 Nucleated RBC % (0.0-0.3) % 0.0 Absolute Neutrophils (1.2-6.7) 10^3/uL 5.83 Absolute Lymphocytes (1.2-3.4) 10^3/uL 1.63 Absolute Monocytes (0.1-0.8) 10^3/uL 0.47 Absolute Eosinophils (0.0-0.7) 10^3/uL 0.03 Absolute Basophils (0.0-0.2) 10^3/uL 0.03 Sodium Cancelled 136 Potassium Cancelled 3.4 L Chloride Cancelled 100 Carbon Dioxide Cancelled 25.1 Anion Gap Cancelled 10.9 BUN Cancelled 5 L Creatinine Cancelled 0.7 Est GFR (CKD-EPI 2020) Cancelled 107.28 Glucose Cancelled 122 H Calcium Cancelled 8.9 Total Bilirubin Cancelled 1.3 H AST Cancelled 12 L ALT Cancelled 11 L Alkaline Phosphatase Cancelled 111 Total Protein Cancelled 7.5 Albumin Cancelled 3.9
[2022-04-21 06:59] VITALS: BP 103/54; PULSE 76; RESP 16; O2SAT 100
[2022-04-21] MEDS: levoFLOXacin 500 MG TAB 1500 MG PO (07:12)
== END 2022-04-21 07:11 | disposition home or self-care (01) ==
PROVIDERS: Emergency Provider Student in an Organized Health Care Education/Training Program; PCP Family Medicine
DX: K52.9 Noninfective gastroenteritis and colitis, unspecified (principal); F17.210 Nicotine dependence, cigarettes, uncomplicated
CPT/HCPCS: 36415; 80053; 87329; 96360; 99285; 74177; 85025; 99284; J3490

== ENCOUNTER 2022-06-20 12:03 | Outpatient (REF) | payer MEDICAID, SELFPAY ==
[2022-06-25 15:48] LABS: Helicobacter pylori Ag, Feces Positive (Negative)
== END 2022-06-20 12:04 | disposition home or self-care (01) ==
LOC: NCHCN 12:03
PROVIDERS: PCP Family Medicine; Visit Provider Registered Nurse
DX: K21.9 Gastro-esophageal reflux disease without esophagitis (principal); R19.7 Diarrhea, unspecified
CPT/HCPCS: 87329; 87338

== ENCOUNTER 2022-08-20 12:50 | Emergency (ER) | payer MEDICAID, SELFPAY ==
[2022-08-20] VITALS (16 sets, daily range): BP systolic 111–131; BP diastolic 64–98; PULSE 71–102; RESP 16; TEMP 36.6–36.9; O2SAT 95–98
--- NOTE | 2022-08-20 13:31 | W.ED.GENAD ---
Discharge Plan Disposition Patient Disposition: Home Condition: Stable Discharge Details Clinical Impression: Colitis Primary Care Provider: Kishore Montelongo ED Provider: Anita Lacey Home Meds and New Rx's Prescriptions: Continued methylphenidate HCl [Ritalin] 20 MG tablet 20 mg PO DAILY clonazepam 0.5 mg tablet 2.5 mg PO DAILY Label Comments: TAKE 1 TABLET BY MOUTH IN THE EVENING cyanocobalamin (vitamin B-12) 1,000 mcg tablet 1 tab PO DAILY Label Comments: TAKE 1 TABLET BY MOUTH EVERY DAY gabapentin 300 mg capsule 100 mg PO BID Label Comments: TAKE 3 CAPSULES BY MOUTH THREE TIMES DAILY pregabalin 50 mg capsule 200 mg PO DAILY Label Comments: TAKE 1 CAPSULE BY MOUTH THREE TIMES DAILY Discharge Instructions Instructions: Colitis (ED) Additional Instructions: stop taking stool softeners tylenol as needed for pain regular fluids call surgeon to schedule colonoscopy f/u with your doctor at scheduled appt return earlier with new or worsening complaints Referrals: Kishore Montelongo [Primary Care Provider] - Jim Watkins MD [[facility] STAFF PHYSICIAN] - 1 week Discharge Data Discharge Date/Time-TO BE ENTERED AT DEPARTURE: 08/20/22 17:38 Medical Decision Making <Kade Chopra NP - Last Filed: 08/26/22 23:00> Patient presenting to the emergency department for chief complaint of change in bowel habits and question of bowel obstruction. She states for months she has had lower pelvic discomfort and difficulty with bowel movements. She states that she has not had a solid solid bowel movement and is just been having watery stools. Patient does state recent history and diagnosis of H. pylori. Denies any antibiotic use but does state some occasional black tarry appearance to her bowel months. She does state previous history of hemorrhoids but does not feel this is what is going on. General physical exam shows suprapubic tenderness, normal active bowel sounds normal cardiac and respiratory exam. Of notation patient states for the past year and a half she has not been able to walk or move and uses a wheelchair at home. I see no diagnoses for this. Per staff development manager though patient was able to easily and with good strength push herself up in bed and reposition. Patient does have a odd affect as well. We will perform labs and CT imaging given suprapubic pain and discomfort. <TIN Whitney - Last Filed: 08/21/22 09:07> Patient presenting to the emergency department for chief complaint of change in bowel habits and question of bowel obstruction. She states for months she has had lower pelvic discomfort and difficulty with bowel movements. She states that she has not had a solid solid bowel movement and is just been having watery stools. Patient does state recent history and diagnosis of H. pylori. Denies any antibiotic use but does state some occasional black tarry appearance to her bowel months. She does state previous history of hemorrhoids but does not feel this is what is going on. General physical exam shows suprapubic tenderness, normal active bowel sounds normal cardiac and respiratory exam. Of notation patient states for the past year and a half she has not been able to walk or move and uses a wheelchair at home. I see no diagnoses for this. Per staff development manager though patient was able to easily and with good strength push herself up in bed and reposition. Patient does have a odd affect as well. We will perform labs and CT imaging given suprapubic pain and discomfort. [address] from [facility] pending CT abdomen and pelvis and reassessment CT abdomen pelvis shows evidence of colitis per radiology interpretation my review Patient is resting comfortably in room She had several episodes of diarrhea likely consistent with the laxatives she has been taking at home She is encouraged to discontinue laxative use that she is exhibiting no signs or symptoms of constipation She is also made aware regarding recurrent colitis and need for outpatient colonoscopy, she is referred to surgery I see no clear indication for antibiotics at this time and Diarrhea is likely secondary to laxative use She is C. difficile negative here She will need close outpatient reassessment with her primary care physician, labs are stable and her exam is consistent with her chronic medical issues and she is comfortable discharge home at this time Care was discussed with both patient's [employer] advocate and patient in room and both are comfortable discharge home Reviewed vital stable, return precautions reviewed HPI <Kade Chopra NP - Last Filed: 08/26/22 23:00> General Mode of arrival: wheelchair. Date/Time Provider Initiated Documentation: 08/20/22 12:51. Limitations to Documentation: no limitations. Information obtained by: patient and RN notes reviewed. History of Present Illness 47 year old F presents to the emergency department with the chief complaint of Difficulty with bowel movements, described as moderate, with intensity rated at 7. Quality is described as aching (pressure), and is localized to the abdomen and pelvis. Patient reports no radiation. Patient started experiencing this month(s) (3) and it has been constant. No relieving factors improve symptom(s), No exacerbating factors reported . Patient did receive the following treatments prior to arrival, other ([id number] enemas) Related Data Home Medications Medication Instructions Recorded Confirmed methylphenidate HCl 20 mg tablet 20 mg PO DAILY 01/16/16 04/21/22 (Ritalin) clonazepam 0.5 mg tablet 2.5 mg PO DAILY 08/20/22 08/20/22 cyanocobalamin (vitamin B-12) 1 tab PO DAILY 08/20/22 08/20/22 1,000 mcg tablet gabapentin 300 mg capsule 100 mg PO BID 08/20/22 08/20/22 pregabalin 50 mg capsule 200 mg PO DAILY 08/20/22 08/20/22 Allergies Allergy/AdvReac Type Severity Reaction Status Date / Time No Known Allergies Allergy Unverified 08/20/22 12:58 General Stated Complaint: Abd Prob ROBLES: 3 Review of Systems <Kade Chopra NP - Last Filed: 08/26/22 23:00> Constitutional Constitutional: Denies chills, Denies fever(s) and Denies headache(s) ENT Ears, Nose, Mouth, and Throat: Denies headache(s) and Denies sore throat Cardiovascular Cardiovascular: Denies chest pain and Denies dyspnea Respiratory Respiratory: Denies cough and Denies dyspnea Gastrointestinal Gastrointestinal: Reports as per HPI, Reports abdominal pain, Reports melena, Denies change in bowel habits, Reports change in stool character, Denies constipation, Reports fecal incontinence, Reports diarrhea, Denies nausea and Denies vomiting Genitourinary Genitourinary: Denies hematuria, Reports pelvic pain, Denies urinary incontinence, Denies urinary hesitancy and Denies urinary urgency Musculoskeletal Musculoskeletal: Denies back pain Integumentary/Breasts Skin/Breast: Denies rash Neurologic Neurologic: Denies headache(s) [facility] <Kade Chopra NP - Last Filed: 08/26/22 23:00> All Active Problems (Updated 08/20/22 @ 17:15 by TIN Whitney) Soft tissue abscess (Acute) Colitis (Acute) Medical History (Updated 08/20/22 @ 17:15 by TIN Whitney) Anxiety Depression Family History Other Heart disease Social History Smoking/Tobacco Use Status: Current every day Tobacco Type: cigarettes Smoking risk assessment performed?: Yes Alcohol Intake: never Drug use: Daily Substance use type: marijuana Do you feel safe at home: Yes Do you feel safe in your relationship?: Yes Exam <Kade Chopra NP - Last Filed: 08/26/22 23:00> Const General: cooperative Orientation: alert, awake and oriented x3 Resp Effort & Inspection: normal respiratory effort and able to speak in complete sentences Auscultation: clear to auscultation bilaterally Cardio Rate: regular rate Rhythm: regular rhythm Heart Sounds: S1 normal and S2 normal GI Palpation: soft, no hepatosplenomegaly, not firm, no guarding, no masses, no pulsatile masses, not rigid, no splenomegaly and tender suprapubicly Auscultation: normal bowel sounds Neuro General: patient alert, patient awake, patient oriented x3, gait normal and moves all extremities Course <Kade Chopra NP - Last Filed: 08/26/22 23:00> Vital Signs Vital signs: Vital Signs Temperature 36.9 C 08/20/22 12:54 Pulse 102 H 08/20/22 12:54 Respiratory Rate 16 08/20/22 12:54 Blood Pressure 117/80 08/20/22 12:54 Pulse Oximetry 98 08/20/22 12:54 Temperature 36.9 C 08/20/22 12:54 Temperature Source Skin 08/20/22 12:54 Pulse 102 H 08/20/22 12:54 Respiratory Rate 16 08/20/22 12:54 Respiratory Effort 08/20/22 13:01 Blood Pressure 117/80 08/20/22 12:54 Blood Pressure Position Sitting 08/20/22 12:54 Pulse Oximetry 98 08/20/22 12:54 Oxygen Delivery Method Room Air 08/20/22 12:54 Oxygen Flow Rate 0 08/20/22 12:54 Pain Level 7 08/20/22 12:54 Sign Out <Kade Chopra NP - Last Filed: 08/26/22 23:00> Sign Out Data: Sign Out Comment: Patient pending CT imaging and disposition based upon findings. Last updated by Kade Chopra NP at 08/20/22 15:29
[2022-08-20 13:55] LABS: Abs Immature Grans 0.01 10^3/uL (0.0-0.06); Absolute Basophil Count 0.03 10^3/uL (0.0-0.2); Absolute Eosinophil Count 0.11 10^3/uL (0.0-0.7); Absolute Lymphocyte Count 2.77 10^3/uL (1.2-3.4); Absolute Monocyte Count 0.51 10^3/uL (0.1-0.8); Absolute Neutrophil Count 2.09 10^3/uL (1.2-6.7); Basophils % 0.5; HCT 39.6 % (36.0-46.0); HGB 13.5 g/dL (11.2-15.7); Immature Grans % 0.2; Lymphocytes % 50.2; MCH 37.5 pg (27.0-33.0); MCHC 34.1 % (32.0-36.0); MCV 110 fL (80-95); Monocytes % 9.2; Neutrophils % 37.9; Platelet Count 173 10^3/uL (130-400); RDW 12.5 % (11.7-14.6); RDW-SD 50.8 fL; WBC 5.52 10^3/uL (4.4-10.8)
[2022-08-20 14:06] LABS: Diff Comment Diff Reviewed; Microcytosis 1+
[2022-08-20 14:14] LABS: Bilirubin Negative (Negative); Blood Negative (Negative); Clarity Sl Cloudy (Clear); Glucose Negative (Negative); Ketones Negative (Negative); Leukocyte Esterase Negative (Negative); Nitrite Negative (Negative); Urobilinogen 0.2 EU/dL (Up TO 0.2); pH 6.5 (5-8)
[2022-08-20 14:14] LABS: ALT 17 U/L (14-59); AST 15 U/L (15-37); Albumin 3.7 g/dL (3.4-5.0); Alkaline Phosphatase 119 U/L (46-116); Anion Gap 6.8 mmol/L (3-11); BUN 6 mg/dL (7-18); Bilirubin, Total 0.4 mg/dL (0.2-1.0); CO2 27.2 mmol/L (21.0-32.0); CREATININE 0.8 mg/dL (0.55-1.02); Calcium 8.9 mg/dL (8.5-10.1); Chloride 109 mmol/L (98-107); Estimated GFR 90.83 (mL/min/1.73m2); Glucose 99 mg/dL (74-106); Lipase 44 U/L (73-393); Magnesium 2.2 mg/dL (1.8-2.4); Potassium 3.6 mmol/L (3.5-5.1); Sodium 143 mmol/L (136-145); Total Protein 7.2 g/dL (6.4-8.2)
--- NOTE | 2022-08-20 14:15 | DI.CT_ITS ---
Exam(s) CT ABDOMEN PELVIS W EXAM: CT ABDOMEN PELVIS W CLINICAL HISTORY: lower abd/pelvic pain difficulty with BM. TECHNIQUE: Imaging Protocol: Axial computed tomography images with coronal and sagittal reformatted images were created and reviewed CONTRAST MATERIAL: Intravenous: Omnipaque 350 Contrast volume:100 ml Oral: Yes COMPARISON: CT CT ABDOMEN PELVIS W from 04/21/2022 FINDINGS: ABDOMEN: Lung Bases: Normal where visualized. Liver: Normal density. No measurable mass. Gallbladder and biliary tract: Status post cholecystectomy. Stable dilatation of the common bile junito t. Pancreas: Normal density, no abnormal calcifications or inflammatory process. Spleen: Normal. Kidneys: Normal size, contour and axis. No radiodense stones or obstructive uropathy. No masses seen. Adrenal glands: No masses seen. Abdominal Aorta: Abdominal portion non-dilated. PELVIS: Bladder: No gross wall thickening. No calculi.No focal mass. Bowel: Wall thickening of the rectum and sigmoid colon suspicious for colitis. There is a small amou nt of stool on and fluid within this area. Other regions of the colon are decompressed. The ileocec al valve is lipomatous, normal variant. No obstruction or bowel wall thickening. Appendix normal. Peritoneal cavity: No ascites, collection or mesenteric inflammatory response. Bones: Within normal limits for age. Reproductive organs: Within normal limits. Lymph nodes: Unremarkable. Impression: Wall thickening of the rectum and sigmoid consistent with colitis. Findings called to Anita Lacey emergency department provider RADIATION DOSE DELIVERED: 753.93mGy.cm Total DLP DATA REPOSITORY: All CT scans at this facility are submitted to the National Radiology Data Registry (NRDR) Dose Index Registry (DIR) with the [employer] (ACR). RADIATION OPTIMIZATION: All CT scans at this facility use at least one of these dose optimization te chniques: automated exposure control; mA and/or kV adjustment per patient size (includes targeted exa ms where dose is matched to clinical indication); or iterative reconstruction.
[2022-08-20] MEDS: Breeza Beverage 473 ML BTL PO (14:44)
[2022-08-20] MEDS: Omnipaque 350 MG/ML 50 ML BTL IJ (14:44)
[2022-08-20] MEDS: Omnipaque 350 MG/ML 100 ML BTL IJ (16:15)
[2022-08-20] MEDS: Normal Saline Flush 10 ML SYR IVP (16:16)
[2022-08-20] MEDS: Normal Saline - Diluent 50 ML VIAL IJ (16:16)
[2022-08-20 16:25] LABS: C Diff PCR Negative (Negative)
[2022-08-21 10:54] LABS: Campylobacter PCR Negative (Negative); Salmonella PCR Negative (Negative); Shiga Toxin PCR Negative (Negative); Shigella/Enteroinvasive Ecoli Negative (Negative)
--- NOTE | 2022-08-21 12:00 | PDOC.ERCMACT ---
- If Service Date Differs Date of service: 08/21/22 Time of Service: 12:00 Care Management Activity Note Rhina is seen in the ED for colitiis. At the request of ED provider, CM coordinates a referral to [facility] to assist patient in obtaining an appointment for further evaluation and treatment. Rhina has Medicaid for insurance.
== END 2022-08-20 17:38 | disposition home or self-care (01) ==
PROVIDERS: Nurse Practitioner Family; Emergency Provider Physician Assistant; PCP Family Medicine
DX: K52.9 Noninfective gastroenteritis and colitis, unspecified (principal)
CPT/HCPCS: 36415; 80053; 81025; 83690; 87329; 87493; 87505; 99285; 74177; 81003; 83630; 83735; 85025; 87177; 99284; J3490; Q9967

== ENCOUNTER 2025-03-09 15:36 | Outpatient (REF) | payer MEDICAID, SELFPAY ==
[2025-03-09 20:46] LABS: HCT 40.7 % (36.0-46.0); HGB 13.6 g/dL (11.2-15.7); MCH 36.5 pg (27.0-33.0); MCHC 33.4 % (32.0-36.0); MPV 10.4 fL (8.0-11.0); Platelet Count 168 10^3/uL (130-400); RBC 3.73 10^6/uL (3.93-5.22); RDW 12.6 % (11.7-14.6); RDW-SD 50.6 fL; WBC 6.76 10^3/uL (4.4-10.8)
[2025-03-09 21:01] LABS: Hemoglobin A1C 6.0 % (<5.7)
[2025-03-09 21:03] LABS: MCV 109 fL (80-95)
[2025-03-09 21:25] LABS: ALT 56 U/L (14-59); AST 110 U/L (15-37); Albumin 3.6 g/dL (3.4-5.0); Alkaline Phosphatase 182 U/L (46-116); Anion Gap 10.6 mmol/L (3-11); BUN 1 mg/dL (7-18); Bilirubin, Total 0.5 mg/dL (0.2-1.0); CO2 27.4 mmol/L (21.0-32.0); Calcium 9.2 mg/dL (8.5-10.1); Calculated LDL 140 mg/dL (<100); Chloride 98 mmol/L (98-107); Cholesterol 215 mg/dL (<200); Estimated GFR 89.71 (mL/min/1.73m2); Folate 5.1 ng/mL (8.6-20.0); Glucose 222 mg/dL (74-106); HDL Cholesterol 33 mg/dL (>or=50); Potassium 3.6 mmol/L (3.5-5.1); Sodium 136 mmol/L (136-145); Total Protein 7.6 g/dL (6.4-8.2); Triglyceride 214 mg/dL (<150); Vitamin B12 745 pg/mL (193-986); Vitamin D 25 Total 15 ng/mL (30-100)
== END 2025-03-09 15:37 | disposition home or self-care (01) ==
LOC: NCHCN 15:36
PROVIDERS: PCP Registered Nurse; Visit Provider Family Medicine
DX: F10.90 Alcohol use, unspecified, uncomplicated (principal); D52.9 Folate deficiency anemia, unspecified; D53.1 Other megaloblastic anemias, not elsewhere classified; E55.9 Vitamin D deficiency, unspecified; Z13.220 Encounter for screening for lipoid disorders
CPT/HCPCS: 80053; 80061; 82306; 85027; 82607; 82746; 83036